=== PATIENT | male | born 1965 | race Caucasian/White ===

== ENCOUNTER 2018-11-08 19:30 | Outpatient (CLI) | payer BC | END 2018-11-08 19:31 | disposition home or self-care (01) | LOC: SLEEPLAB 19:30 | PROVIDERS: ATTEND Otolaryngology Plastic Surgery within the Head & Neck | DX: G47.9 Sleep disorder, unspecified (principal); G47.33 Obstructive sleep apnea (adult) (pediatric); R06.83 Snoring; G47.00 Insomnia, unspecified; G47.10 Hypersomnia, unspecified; R51 Headache; I10 Essential (primary) hypertension | CPT/HCPCS: 95811 ==

== ENCOUNTER 2023-03-17 18:25 | Emergency (ER) | payer BC, OTHER ==
[2023-03-17 18:47] LABS: #Basophils 0.1 thou/uL (0.0-0.2); #Eosinphils 0.3 thou/uL (0.0-0.7); #Monocytes 0.8 thou/uL (0.11-0.59); #Neutrophils 4.9 thou/uL (1.40-6.50); %Basophils 0.7 % (0.0-1.0); %Eosinophils 4.1 % (0.0-10.0); %Lymphocytes 24.3 % (21.0-51.0); %Monocytes 10.4 % (0.0-10.0); %Neutrophils 60.4 % (42.0-75.0); Hematocrit 45.4 % (42.0-52.0); Hemoglobin 15.6 g/dL (14.0-18.0); Mean Corpuscular HGB CONC 34.4 g/dL (32.0-36.0); Mean Corpuscular Hemoglobin 30.7 pg (27.0-31.0); Mean Corpuscular Volume 89.4 fl (78.0-98.0); Mean Platelet Volume 9.7 fL (7.4-10.4); Platelet Count 282 10x3/uL (130-400); RBC Distribution Width 13.4 % (11.5-14.5); Red Blood Cell (RBC) Count 5.08 mill/uL (4.70-6.10); White Blood Cell (WBC) Count 8.1 10x3/uL (4.8-10.8)
[2023-03-17 19:15] LABS: Troponin I Less than 0.010 ng/mL (< 0.028)
[2023-03-17 19:17] LABS: ALT (SGPT) 46 U/L (8-55); AST (SGOT) 28 U/L (5-34); Albumin 4.3 g/dL (3.5-5.0); Alkaline Phosphatase 79 U/L (40-110); Anion Gap 12 mmol/L (10-20); BUN (Urea Nitrogen) 12 mg/dL (8.4-25.7); Bilirubin, Total 0.3 mg/dL (0.2-1.2); Calc. Creatinine Clearance 0 mL/min (70-130); Calcium 9.1 mg/dL (7.8-10.44); Carbon Dioxide 24 mmol/L (22-29); Chloride 105 mmol/L (98-107); Estimated GFR 97; Globulin 2.6 g/dL (2.4-3.5); Glucose 94 mg/dL (70-105); Protein, Total 6.9 g/dL (6.0-8.3); Sodium 137 mmol/L (136-145)
== END 2023-03-17 19:35 | disposition home or self-care (01) ==
LOC: ERS 18:25
DX: R07.9 Chest pain, unspecified (principal); I10 Essential (primary) hypertension; Z79.899 Other long term (current) drug therapy
CPT/HCPCS: 36415; 71045; 80053; 84484; 85025; 93005